=== PATIENT | female | born 1980 | race African-American/Black ===

== ENCOUNTER 2021-03-18 08:54 | Emergency (ER) | payer SELFPAY ==
[~2021-03-18] VITALS: Ht 167.6 cm; Wt 54.5 kg
[2021-03-18] MEDS ORDERED: KETOROLAC 15 MG/ML VIAL. IVP ONE (10:15)
[2021-03-18 10:25] LABS: BILIRUBIN,URINE NEGATIVE (NEG); CLARITY,URINE CLOUDY; COLOR,URINE YELLOW; NITRITE,URINE NEGATIVE (NEG); PROTEIN,URINE >=300 mg/dL (NEG-TRACE); UROBILINOGEN,URINE 0.2 mg/dL (0.2 mg/dL)
[2021-03-18 10:33] LABS: BASO # 0.1 x10^3/uL (0.0-0.2); BASO % 1 % (0-3); EOS # 0.2 x10^3/uL (0.0-0.7); EOS % 2 % (0-3); HEMATOCRIT 36.2 % (36.0-47.0); HEMOGLOBIN 12.4 g/dL (12.0-15.5); LYMPH # 2.3 x10^3/uL (1.0-4.8); LYMPH % 23 % (24-48); MEAN CORPUSCULAR HEMOGLOBIN 30 pg (25-35); MEAN CORPUSCULAR HGB CONC 34 g/dL (31-37); MEAN CORPUSCULAR VOLUME 88 fL (79-100); MONO # 0.4 x10^3/uL (0.0-1.1); MONO % 4 % (0-9); NEUT # 7.3 x10^3/uL (1.8-7.7); NEUT % 71 % (31-73); PLATELET COUNT 203 x10^3/uL (140-400); RED BLOOD COUNT 4.12 x10^6/uL (3.50-5.40); RED CELL DISTRIBUTION WIDTH 13.2 % (11.5-14.5); WHITE BLOOD COUNT 10.3 x10^3/uL (4.0-11.0)
--- NOTE | 2021-03-18 10:37 | PHYS DOC ---
Past Medical History Past Surgical History: (NICOLASA ZHU APRN) Smoking Status: Never Smoker Alcohol Use: None (NICOLASA ZHU APRN) General Adult EDM: Chief Complaint: BACK PAIN - NO INJURY HPI: HPI: Patient is a 40 year old female who presents with 2 weeks ago fell down some stairs and landed on the right back was not seen for that. She states that she is continuing to have worsening right back pain that sharp shooting radiating the right lower quadrant. She states Tylenol does not help. Does come more so with movement. She is noncompliant with any of her medications and has not taken any medication for about a year. Patient denies any urinary symptoms, nausea, vomiting, diarrhea, fever, dizziness, chest pain, shortness of air, body aches. (NICOLASA ZHU APRN) Review of Systems: Review of Systems: Constitutional: Denies fever or chills. [] Eyes: Denies change in visual acuity. [] HENT: Denies nasal congestion or sore throat. [] Respiratory: Denies cough or shortness of breath. [] Cardiovascular: Denies chest pain or edema. [] GI: + abdominal pain, denies nausea, vomiting, bloody stools or diarrhea. [] : Denies dysuria. [] Musculoskeletal: + Right back back pain or denies joint pain. [] Integument: Denies rash. [] Neurologic: Denies headache, focal weakness or sensory changes. [] Endocrine: Denies polyuria or polydipsia. [] Lymphatic: Denies swollen glands. [] Psychiatric: Denies depression or anxiety. [] (NICOLASA ZHU PRESS TENDER) Heart Score: C/O Chest Pain: No Risk Factors: Risk Factors: DM, Current or recent (<one month) smoker, HTN, HLP, family history of CAD, obesity. Risk Scores: Score 0 - 3: 2.5% MACE over next 6 weeks - Discharge Home Score 4 - 6: 20.3% MACE over next 6 weeks - Admit for Clinical Observation Score 7 - 10: 72.7% MACE over next 6 weeks - Early Invasive Strategies (NICOLASA ZHU APRN) Current Medications: Current Medications Medications (Trade) Dose Ordered Sig/Kyle Start Time Stop Time Status Last Admin Dose Admin Ketorolac Tromethamine (Toradol 15mg Vial) 15 mg 1X ONCE 03/18/21 10:15 03/18/21 10:20 DC (ANGÉLICANICOLASA APRN) Allergies: Allergies: Allergies Coded Allergies Type Severity Reaction Last Updated Verified No Known Drug Allergies 03/18/21 No (ANGÉLICANICOLASA APRN) Physical Exam: PE: Constitutional: Well developed, well nourished, no acute distress, non-toxic appearance. [] HENT: Normocephalic, atraumatic, bilateral external ears normal, oropharynx moist, no oral exudates, nose normal. [] Eyes: PERRLA, EOMI, conjunctiva normal, no discharge. [] Neck: Normal range of motion, no tenderness, supple, no stridor. [] Cardiovascular:Heart rate regular rhythm, no murmur [] Lungs & Thorax: Bilateral breath sounds clear to auscultation [] Abdomen: Bowel sounds normal, soft, right lower quadrant tenderness, no masses, no pulsatile masses. [] Skin: Warm, dry, no erythema, no rash. [] Back: No tenderness, right CVA tenderness. [] Extremities: No tenderness, no cyanosis, no clubbing, ROM intact, no edema. [] Neurologic: Alert and oriented X 3, normal motor function, normal sensory function, no focal deficits noted. [] Psychologic: Affect normal, judgement normal, mood normal. [] (NICOLASA ZHU APRN) Current Patient Data: Vital Signs: Vital Signs Date Time Temp Pulse Resp B/P (MAP) Pulse Ox O2 Delivery O2 Flow Rate FiO2 03/18/21 10:12 98.0 89 16 141/90 97 Room Air 98.0 (NICOLASA ZHU APRN) EKG: EKG: [] [facility]) Radiology/Procedures: Radiology/Procedures: [] Impression: [facility] [address] [place] [address] IMAGING REPORT Signed PATIENT: TYRON KIRKPATRICK ACCOUNT: [id number] : 1980 LOCATION: ER AGE: 40 SEX: F EXAM STATUS: REG ER ORD. PHYSICIAN: NICOLASA ZHU APRN REASON: right back pain that goes in right lower abd PROCEDURE: CT ABDOMEN PELVIS WO CONTRAST INDICATION: Reason: right back pain that goes in right lower abd / Spl. Instructions: / History: . COMPARISON: None. TECHNIQUE: Axial CT images obtained through the abdomen and pelvis without contrast. Refo rmatted images of the lumbar spine obtained.. One or more of the following individualized dose reduction techniques were utilized for this examination: 1. Automated exposure control; 2. Adjustment of the mA and/or kV according to patient size; 3. Use of iterative reconstruction technique. FINDINGS: Abdomen and pelvis: Linear opacities at the lung bases could be from scarring or atelectasis. Nodular component at the left lung base measuring up to about 6 mm. Limited assessment of the solid organ structures and vasculature secondary to lack of contrast. Liver is prominent in size. Dense calcifications are identified at the panc reatic head and uncinate process region with areas of low density. There is dilatation of the pancreatic duct distal to this location measuring up to about 10 mm. Similar calcifications are seen at the area of the duct. Spleen unremarkable. Intrauterine device is seen at the uterus. The urinary bladder has some air within the lumen as well as thickening of the wall. There is some adjacent loops of bowel seen. Distention of the right greater than left extrarenal pelvis. Moderate stool within the colon. The appendix measures approximately 6 mm without definite surrounding inflammatory changes. Small free fluid. Degenerative changes the spine with multilevel central canal and neural foraminal stenosis. There is some mild suspected rotation of the mesentery at t he expected location of the superior mesenteric vessels. There is also fullness of the suspected superior mesenteric vein with mild haziness the fat. There is a couple of distended loops of small bowel identified measuring up to about 26 mm Lumbar spine: No acute fracture or dislocation. Multilevel degenerative changes of the lumbar spine with mild disc protrusions as well as ligamentum flavum and facet hypertrophy. For example at L3-4 there is a broad-based posterior disc protrusion with ligamentum flavum and facet hypertrophy with associated moderate trefoil narrowing of the central canal and mild bilateral neural foraminal stenosis. At L4-5 there is a broad-based posterior disc protrusion with ligamentum flavum and facet hypertrophy with moderate trefoil narrowing of the central canal and moderate bilateral neural foraminal stenosis. There is also disc protrusion at L5-S1 exerting mild mass effect on the anterior aspect of the thecal sac with facet hypertrophy. IMPRESSION: * Degenerative changes of the lumbar spine without acute fracture or dislocation. * Wall thickening of the urinary bladder is identified with air within the lumen of the urinary bladder. There are several loops of bowel abutting the urinary bladder. This wall thickening could be from causes such as cystitis or chronic partial bladder outlet obstruction and would correlate with symptoms. the air within the urinary bladder could be related to instrumentation if the patient had recent instrumentation but given the proximity to bowel loops alternative causes such as fistula to a bowel loop is not excluded given the air in this region as well as the wall thickening. * Heterogeneity of the pancreatic head and uncinate process region with large amount of calcifications in the area as well as there is a low density. This could be secondary to causes such as sequela of chronic pancreatitis with associated calcifications and ductal dilatation as well as pseudocyst but cannot assess for a mass within the pancreatic head and uncinate process on this noncontrast examination. * There is some haziness the fat adjacent to the superior mesenteric artery and vein with some engorgement of the superior mesenteric vein with mild rotation the mesentery at this site. Given the engorgement and haziness causes such as superior mesenteric vein thrombus cannot be excluded on this examination and if more accurate evaluation is desired postcontrast exam could be obtained to further evaluate. Alternatively ultrasound could be attempted. * There is a couple mildly dilated loops of small bowel identified without high-grade transition point. * Left lung base nodule Fleischner Society recommendations for solitary solid lung nodule follow up.: In a low risk patient: <6mm - No follow up required. 6-8mm - 6-[address], then CT at 18-24 months. >8mm - CT at 3 months, PET/CT or tissue sampling. In a high risk patient (history of smoking or other known risk factors): <6mm - Follow up CT at 12 months. 6-8mm - 6-[address], then CT at 18-24 months. >8mm - CT at 3 months, PET/CT or tissue sampling. Fleischner Society recommendations for multiple solid lung nodule follow up.: In a low risk patient: <6mm - No follow up required. 6-8mm - 3-[address], then CT at 18-24 months. >8mm - CT at 3-6 months, then at 18-24 months. PET/CT or tissue sampling based on most suspicious nodule. In a high risk patient (history of smoking or other known risk factors): <6mm - Follow up CT at 12 months. 6-8mm - 3-[address], then CT at 18-24 months. >8mm - CT at 3-6 months, PET/CT or tissue sampling option based on most suspicious nodule. Electronically signed by: Bryan Thomas MD (03/18/2021 12:00 PM) DESKTOP- [id number] DICTATED and SIGNED BY: BRYAN THOMAS MD DATE: 03/18/21 [id number] (NICOLASA ZHU APRN) Course & Med Decision Making: Course & Med Decision Making Pertinent Labs and Imaging studies reviewed. (See chart for details) See HPI. Alert and oriented x4. Ambulatory steady gait. Speaks in full clear sentences. Right CVA tenderness. Right lower quadrant tenderness with palpation. Abdomen otherwise soft and nontender. Skin pink warm and dry. Afebrile. Patient admitted to [facility] urology. I spoke with a Dr. Chau. Patient is given Rocephin, Toradol, and Zosyn IV. Patient is also given insulin for her high sugar. [] (NICOLASA ZHU APRN) Course & Med Decision Making I have participated in the care of this patient and I have reviewed and agree with all pertinent clinical information above including history, exam, and recommendations. Marimar Acevedo DO (MARIMAR ACEVEDO DO) Afsaneh Disclaimer: Afsaneh Disclaimer: This electronic medical record was generated, in whole or in part, using a voice recognition dictation system. (NICOLASA ZHU APRN) Departure Departure Impression: Primary Impression: Urinary tract infection Qualified Codes: N30.00 - Acute cystitis without hematuria Additional Impression: Urinary anomaly Disposition: 02 [facility] TERM [facility] ([facility]) Condition: STABLE Referrals: NO PCP (PCP) NICOLASA ZHU APRN Mar 18, 2021 10:37 MARIMAR ACEVEDO DO Mar 18, 2021 16:11
[2021-03-18 10:39] LABS: CREATININE 1.6 mg/dL (0.6-1.0); GFR 42.8; POTASSIUM 4.4 mmol/L (3.5-5.1)
[2021-03-18 10:39] LABS: BACTERIA,URINE MODERATE /HPF (0-FEW); WBC,URINE TNTC /HPF (0-4)
[2021-03-18 10:46] LABS: ALBUMIN 2.2 g/dL (3.4-5.0); ALBUMIN/GLOBULIN RATIO 0.5 (1.0-1.7); TOTAL BILIRUBIN 0.1 mg/dL (0.2-1.0)
[2021-03-18 10:48] LABS: U PREG PATIENT NEGATIVE (NEG)
[2021-03-18] MEDS ORDERED: cefTRIAXone IV Push 1 GM VIAL. IVP ONE (11:00)
[2021-03-18] MEDS ORDERED: IV NORMAL SALINE 1000ML BAG 1,000 ML IV ONE (11:00)
[2021-03-18] MEDS ORDERED: INSULIN REGULAR 100 UNIT/ML 3ML VIAL. IV ONE (12:00)
--- NOTE | 2021-03-18 12:03 | RAD ---
INDICATION: Reason: right back pain that goes in right lower abd / Spl. Instructions: / History: . COMPARISON: None. TECHNIQUE: Axial CT images obtained through the abdomen and pelvis without contrast. Reformatted images of the l umbar spine obtained.. One or more of the following individualized dose reduction techniques were utilized for this examinat ion: 1. Automated exposure control; 2. Adjustment of the mA and/or kV according to patient size; 3 . Use of iterative reconstruction technique. FINDINGS: Abdomen and pelvis: Linear opacities at the lung bases could be from scarring or atelectasis. Nodular component at the le ft lung base measuring up to about 6 mm. Limited assessment of the solid organ structures and vasculature secondary to lack of contrast. Liver is prominent in size. Dense calcifications are identified at the pancreatic head and uncinate p rocess region with areas of low density. There is dilatation of the pancreatic duct distal to this lo cation measuring up to about 10 mm. Similar calcifications are seen at the area of the duct. Spleen unremarkable. Intrauterine device is seen at the uterus. The urinary bladder has some air within the lumen as well as thickening of the wall. There is some ad jacent loops of bowel seen. Distention of the right greater than left extrarenal pelvis. Moderate stool within the colon. The appendix measures approximately 6 mm without definite surroundin g inflammatory changes. Small free fluid. Degenerative changes the spine with multilevel central canal and neural foraminal stenosis. There is some mild suspected rotation of the mesentery at the expected location of the superior mesenteric ves sels. There is also fullness of the suspected superior mesenteric vein with mild haziness the fat. There is a couple of distended loops of small bowel identified measuring up to about 26 mm Lumbar spine: No acute fracture or dislocation. Multilevel degenerative changes of the lumbar spine with mild disc protrusions as well as ligamentum flavum and facet hypertrophy. For example at L3-4 there is a broad-based posterior disc protrusion wi th ligamentum flavum and facet hypertrophy with associated moderate trefoil narrowing of the central canal and mild bilateral neural foraminal stenosis. At L4-5 there is a broad-based posterior disc pro trusion with ligamentum flavum and facet hypertrophy with moderate trefoil narrowing of the central c anal and moderate bilateral neural foraminal stenosis. There is also disc protrusion at L5-S1 exertin g mild mass effect on the anterior aspect of the thecal sac with facet hypertrophy. IMPRESSION: * Degenerative changes of the lumbar spine without acute fracture or dislocation. * Wall thickening of the urinary bladder is identified with air within the lumen of the urinary blad hiro. There are several loops of bowel abutting the urinary bladder. This wall thickening could be fro m causes such as cystitis or chronic partial bladder outlet obstruction and would correlate with symp toms. the air within the urinary bladder could be related to instrumentation if the patient had rece nt instrumentation but given the proximity to bowel loops alternative causes such as fistula to a bow el loop is not excluded given the air in this region as well as the wall thickening. * Heterogeneity of the pancreatic head and uncinate process region with large amount of calcificatio ns in the area as well as there is a low density. This could be secondary to causes such as sequela o f chronic pancreatitis with associated calcifications and ductal dilatation as well as pseudocyst but cannot assess for a mass within the pancreatic head and uncinate process on this noncontrast examina tion. * There is some haziness the fat adjacent to the superior mesenteric artery and vein with some engor gement of the superior mesenteric vein with mild rotation the mesentery at this site. Given the engor gement and haziness causes such as superior mesenteric vein thrombus cannot be excluded on this exami nation and if more accurate evaluation is desired postcontrast exam could be obtained to further eval uate. Alternatively ultrasound could be attempted. * There is a couple mildly dilated loops of small bowel identified without high-grade transition poi nt. * Left lung base nodule Fleischner Society recommendations for solitary solid lung nodule follow up.: In a low risk patient: <6mm - No follow up required. 6-8mm - 6-[address], then CT at 18-24 months. >8mm - CT at 3 months, PET/CT or tissue sampling. In a high risk patient (history of smoking or other known risk factors): <6mm - Follow up CT at 12 months. 6-8mm - 6-[address], then CT at 18-24 months. >8mm - CT at 3 months, PET/CT or tissue sampling. Fleischner Society recommendations for multiple solid lung nodule follow up.: In a low risk patient: <6mm - No follow up required. 6-8mm - 3-[address], then CT at 18-24 months. >8mm - CT at 3-6 months, then at 18-24 months. PET/CT or tissue sampling based on most suspicious no dule. In a high risk patient (history of smoking or other known risk factors): <6mm - Follow up CT at 12 months. 6-8mm - 3-[address], then CT at 18-24 months. >8mm - CT at 3-6 months, PET/CT or tissue sampling option based on most suspicious nodule. Electronically signed by: Gunnar Dela Cruz MD (03/18/2021 12:00 PM) [id number]
[2021-03-18] MEDS ORDERED: PIPERACILLIN/TAZOBACTAM 3.375 GM in IV NORMAL SALINE 50ML 50 ML IV ONE (12:45)
[2021-03-18 19:15] VITALS: BP 191/94
[2021-03-18] MEDS ORDERED: hydrALAZINE 20 MG/ML VIAL. IVP ONE (19:15)
== END 2021-03-18 19:20 | disposition short-term general hospital (02) ==
LOC: ER 08:54
DX: N30.00 Acute cystitis without hematuria (principal); M54.9 Dorsalgia, unspecified; G89.11 Acute pain due to trauma; W10.8XXA Fall (on) (from) other stairs and steps, initial encounter; Y93.89 Activity, other specified; Y92.89 Other specified places as the place of occurrence of the external cause; Y99.8 Other external cause status
CPT/HCPCS: 36415; 74176; 80053; 81001; 81025; 82010; 82962; 83605; 85025; 87040; 87077; 87086; 87186; 87426; 96361; 96365; 96375; 99285; J0360; J0696; J1815; J1885; J2543; J7030; U0003; U0005

== ENCOUNTER 2021-09-08 09:21 | Emergency (ER) | payer SELFPAY ==
[~2021-09-08] VITALS: Ht 167.6 cm; Wt 54.5 kg
[2021-09-08 09:33] VITALS: BP 156/90
[2021-09-08 10:14] LABS: CREATININE 1.8 mg/dL (0.6-1.0); GFR 37.3; POTASSIUM 3.2 mmol/L (3.5-5.1)
[2021-09-08 10:19] LABS: U PREG PATIENT NEGATIVE (NEG)
[2021-09-08 10:20] LABS: BASO # 0.1 x10^3/uL (0.0-0.2); BASO % 1 % (0-3); C-REACTIVE PROTEIN 34.6 mg/L (0-3.3); EOS # 0.1 x10^3/uL (0.0-0.7); EOS % 0 % (0-3); HEMATOCRIT 34.2 % (36.0-47.0); HEMOGLOBIN 11.3 g/dL (12.0-15.5); LYMPH # 2.5 x10^3/uL (1.0-4.8); LYMPH % 17 % (24-48); MEAN CORPUSCULAR HEMOGLOBIN 30 pg (25-35); MEAN CORPUSCULAR HGB CONC 33 g/dL (31-37); MEAN CORPUSCULAR VOLUME 90 fL (79-100); MONO # 0.9 x10^3/uL (0.0-1.1); MONO % 6 % (0-9); NEUT # 11.5 x10^3/uL (1.8-7.7); NEUT % 77 % (31-73); PLATELET COUNT 395 x10^3/uL (140-400); RED BLOOD COUNT 3.82 x10^6/uL (3.50-5.40); RED CELL DISTRIBUTION WIDTH 12.8 % (11.5-14.5); URIC ACID 4.8 mg/dL (2.6-6.0); WHITE BLOOD COUNT 14.9 x10^3/uL (4.0-11.0)
--- NOTE | 2021-09-08 10:27 | RAD ---
Three-view right elbow dated 09/08/2021. No comparison available. CLINICAL INDICATION: Pain. FINDINGS: 3 views right elbow show normal bony alignment. No displaced fracture. No periostitis or bone destruc tion. No acute osseous or articular abnormality. No apparent joint effusion or loose body. Mild soft tissue swelling, nonspecific. IMPRESSION: 1. Soft tissue swelling with no apparent underlying acute bony abnormality. Electronically signed by: Paddy Levine MD (09/08/2021 10:25 AM) [id number]
[2021-09-08] MEDS ORDERED: LIDOCAINE 1% PF 5 ML VIAL. INJ ONE (10:30)
--- NOTE | 2021-09-08 11:49 | RAD ---
Examination: Ultrasound right upper extremity venous duplex HISTORY: History of right upper extremity ,swelling, redness COMPARISON: None available TECHNIQUE: Grayscale, color Doppler 2-D, spectral waveform analysis of the right upper extremity veno us system were performed. Findings: The visualized internal jugular vein, subclavian vein, axillary vein, brachial vein, radial, ulnar ve ins are patent. IMPRESSION: No evidence of deep venous thrombosis right upper extremity venous system. Electronically signed by: Vish Hui MD (09/08/2021 11:47 AM) [id number]
[2021-09-08 12:22] LABS: BF CLARITY CLEAR; BF COLOR COLORLESS; BF MON % 100 %; BF PMN % 0 %; BF RBC COUNT 1 /cmm (Not Established); BF SOURCE SYNOVIAL; BF WBC COUNT 22 /cmm (Not Established)
[2021-09-08] MEDS ORDERED: CEPH500C PO (13:04)
--- NOTE | 2021-09-08 13:05 | PHYS DOC ---
Past Medical History Past Surgical History: Smoking Status: Never Smoker Alcohol Use: None General Adult EDM: Chief Complaint: UPPER EXTREMITY PAIN HPI: HPI: Patient is a 40 year old female who presents with 3-4 days of right upper extremity pain and swelling. She noticed an area of redness on the inside portion of her elbow that has been progressive. She has had increasing pain especially with range of movement of the elbow. She reports subjective fever/chills, but has not measured any temperatures. Does not recall any trauma to the area. Denies IVDU. Denies any history of recent hospitalizations or IV starts in this region. Denies any previous operations or issues with her right elbow. Review of Systems: Review of Systems: Constitutional: Reports subjective fever and chills Eyes: Denies change in visual acuity. [] HENT: Denies nasal congestion or sore throat. [] Respiratory: Denies cough or shortness of breath. [] Cardiovascular: Denies chest pain or edema. [] GI: Denies abdominal pain, nausea, vomiting, bloody stools or diarrhea. [] : Denies dysuria. [] Musculoskeletal: Reports right elbow pain Integument: Reports right arm redness Neurologic: Denies headache, focal weakness or sensory changes. [] Psychiatric: Denies depression or anxiety. [] Heart Score: C/O Chest Pain: No Current Medications: Current Medications Medications (Trade) Dose Ordered Sig/[facility] Start Time Stop Time Status Last Admin Dose Admin Lidocaine HCl (Xylocaine-Mpf 1% 5ml Vial) 5 ml 1X ONCE 09/08/21 10:30 09/08/21 10:31 DC 09/08/21 10:28 5 ML Allergies: Allergies: Allergies Coded Allergies Type Severity Reaction Last Updated Verified No Known Drug Allergies 03/18/21 No Physical Exam: PE: Constitutional: Well developed, well nourished, no acute distress, non-toxic appearance. [] HENT: Normocephalic, atraumatic Neck: Normal range of motion, no tenderness, supple, no stridor. [] Cardiovascular:Heart rate regular rhythm, no murmur [] Lungs & Thorax: Bilateral breath sounds clear to auscultation [] Abdomen: Bowel sounds normal, soft, no tenderness, no masses, no pulsatile masses. [] Skin: Area of tender erythema over the medial portion of the right antecubital space. No evidence of track sauceda. Back: No tenderness, no CVA tenderness. [] Extremities: Mild swelling of the right elbow. Limited P PROM and AROM due to pain. Skin as above. No deformity. 2+ radial pulse. No edema distal to the elbow. Neurologic: Alert and oriented X 3, normal motor function, normal sensory function, no focal deficits noted. [] Current Patient Data: Labs: Laboratory Tests Test 09/08/21 09:40 09/08/21 09:47 09/08/21 09:56 09/08/21 11:00 White Blood Count 14.9 x10^3/uL (4.0-11.0) H Red Blood Count 3.82 x10^6/uL (3.50-5.40) Hemoglobin 11.3 g/dL (12.0-15.5) L Hematocrit 34.2 % (36.0-47.0) L Mean Corpuscular Volume 90 fL (79-100) Mean Corpuscular Hemoglobin 30 pg (25-35) Mean Corpuscular Hemoglobin Concent 33 g/dL (31-37) Red Cell Distribution Width 12.8 % (11.5-14.5) Platelet Count 395 x10^3/uL (140-400) Neutrophils (%) (Auto) 77 % (31-73) H Lymphocytes (%) (Auto) 17 % (24-48) L Monocytes (%) (Auto) 6 % (0-9) Eosinophils (%) (Auto) 0 % (0-3) Basophils (%) (Auto) 1 % (0-3) Neutrophils # (Auto) 11.5 x10^3/uL (1.8-7.7) H Lymphocytes # (Auto) 2.5 x10^3/uL (1.0-4.8) Monocytes # (Auto) 0.9 x10^3/uL (0.0-1.1) Eosinophils # (Auto) 0.1 x10^3/uL (0.0-0.7) Basophils # (Auto) 0.1 x10^3/uL (0.0-0.2) Erythrocyte Sedimentation Rate 115 (0-25) H Sodium Level 133 mmol/L (136-145) L Potassium Level 3.2 mmol/L (3.5-5.1) L Chloride Level 101 mmol/L (98-107) Carbon Dioxide Level 23 mmol/L (21-32) Anion Gap 9 (6-14) Blood Urea Nitrogen 17 mg/dL (7-20) Creatinine 1.8 mg/dL (0.6-1.0) H Estimated GFR (Cockcroft-Gault) 37.3 Glucose Level 285 mg/dL (70-99) H Uric Acid 4.8 mg/dL (2.6-6.0) Calcium Level 8.0 mg/dL (8.5-10.1) L C-Reactive Protein, Quantitative 34.6 mg/L (0-3.3) H Urine Test Negative (NEG) POC Urine HCG, Qualitative Hcg negative (Negative) Body Fluid Source Synovial Body Fluid Color Colorless Body Fluid Clarity Clear Body Fluid Nucleated Cells 22 /cmm (Not Established) Body Fluid Mononuclear WBCs (%) 100 % Body Fluid Polymorphonuclear Cells 0 % Body Fluid Total RBCs Counted 1 /cmm (Not Established) Laboratory Tests 09/08/21 09:40 Laboratory Tests 09/08/21 09:40 Vital Signs: Vital Signs Date Time Temp Pulse Resp B/P (MAP) Pulse Ox O2 Delivery O2 Flow Rate FiO2 09/08/21 09:33 98.1 84 18 156/90 (112) 98 Room Air 98.1 EKG: EKG: [] Radiology/Procedures: Radiology/Procedures: Bedside ultrasound: Identified small hypoechoic elbow joint effusion. [] Indication: Spontaneous right elbow effusion Consent: Consent given by patient. Procedure: The right elbow was positioned appropriately in 90 degrees of flexion and the landmarks were identified. First attempt was a posterior approach with ultrasound guidance. The area was cleansed with chlorhexidine scrub. Local anesthesia was injected with 1% lidocaine without epinephrine. A 20-gauge needle was then introduced and a posterior approach without return of joint fluid. The traditional lateral approach was then attempted with the same chlorhexidine and anesthetic prep. The needle was introduced into the joint space and 5 cc clear/colorless synovial fluid was aspirated. Synovial fluid was capped and sent to the lab for further analysis. The patient tolerated the procedure well. Complications: none. Impression: [facility] [address] [place], [place] [id number] IMAGING REPORT Signed PATIENT: TYRON KIRKPATRICK ACCOUNT: [id number] : 1980 LOCATION: ER AGE: 40 SEX: F EXAM STATUS: REG ER ORD. PHYSICIAN: PIEDAD BERNAL MD REASON: RUE swelling, redness, pain PROCEDURE: VENOUS UPPER EXTREMITY RIGHT Examination: Ultrasound right upper extremity venous duplex HISTORY: History of right upper extremity ,swelling, redness COMPARISON: None available TECHNIQUE: Grayscale, color Doppler 2-D, spectral waveform analysis of the right upper extremity venous system were performed. Findings: The visualized internal jugular vein, subclavian vein, axillary vein, brachial vein, radial, ulnar veins are patent. IMPRESSION: No evidence of deep venous thrombosis right upper extremity venous system. Electronically signed by: Vish Hui MD (09/08/2021 11:47 AM) [id number] DICTATED and SIGNED BY: VISH HUI MD DATE: 09/08/21 [id number] [facility] [address] [place], [place] [id number] IMAGING REPORT Signed PATIENT: TYRON KIRKPATRICK ACCOUNT: [id number] : 1980 LOCATION: ER AGE: 40 SEX: F EXAM STATUS: REG ER ORD. PHYSICIAN: PIEDAD BERNAL MD REASON: RUE swelling, redness, pain PROCEDURE: ELBOW RIGHT 3V Three-view right elbow dated 09/08/2021. No comparison available. CLINICAL INDICATION: Pain. FINDINGS: 3 views right elbow show normal bony alignment. No displaced fracture. No periostitis or bone destruction. No acute osseous or articular abnormality. No apparent joint effusion or loose body. Mild soft tissue swelling, nonspecific. IMPRESSION: 1. Soft tissue swelling with no apparent underlying acute bony abnormality. Electronically signed by: Paddy Levine MD (09/08/2021 10:25 AM) [id number] DICTATED and SIGNED BY: PADDY LEVINE MD DATE: 09/08/21 [id number] Course & Med Decision Making: Course & Med Decision Making Pertinent Labs and Imaging studies reviewed. (See chart for details) Patient is a 40-year-old female who presents with right upper extremity redness and swelling around the elbow. The redness is isolated to the medial antecubital space, and there is evidence of an elbow effusion on exam and by ultrasound. Patient is afebrile and vitally stable. Overall well-appearing on exam. DDx included cellulitis, septic arthritis, inflammatory arthritis, noninflammatory joint effusion, DVT, and septic thrombophlebitis. There is no evidence of bursitis. X-ray did not show any traumatic injuries. DVT ultrasound was negative excluding DVT and septic thrombophlebitis. Joint was aspirated and revealed clear/colorless fluid with no PMNs, making septic and inflammatory arthritis exceedingly unlikely. Fluid was sent for Gram stain, culture, and crystal analysis. At this time this seems to be primarily cellulitis of the right upper extremity. Will be treated with p.o. antibiotics. Dragon Disclaimer: Dragon Disclaimer: This electronic medical record was generated, in whole or in part, using a voice recognition dictation system. Departure Departure Impression: Primary Impression: Cellulitis Additional Impression: Joint effusion of elbow Disposition: 01 HOME / SELF CARE / HOMELESS Condition: STABLE Referrals: NO PCP (PCP) Patient Instructions: Cellulitis Additional Instructions: There were no signs of a blood clot in your arm. There was no sign of bacteria in your joint space. You DO have a bacterial infection of your skin. We will treat this with antibiotics. Please supervisor opening and picking your prescription and take the entire course. Return to the emergency department if this is not improving after 3-4 days of antibiotics. Scripts Cephalexin (KEFLEX) 500 Mg Capsule 1 CAP PO BID, #10 CAP 0 Refills Prov: PIEDAD BERNAL MD 09/08/21 PIEDAD BERNAL MD Sep 08, 2021 13:05
== END 2021-09-08 13:10 | disposition home or self-care (01) ==
LOC: ER 09:21
DX: M25.421 Effusion, right elbow (principal); L03.113 Cellulitis of right upper limb
CPT/HCPCS: 20605; 36415; 73080; 80048; 81025; 83615; 84550; 85025; 85651; 86140; 87075; 89050; 89060; 93971; 96372; 99285; J3490